=== PATIENT | female | born 1945 | race Caucasian/White ===

== ENCOUNTER → 2021-03-23 | Outpatient (CLI) | payer MEDICARE ==
[~2021-03-23] MED LIST: ASPIR 8181 MG PO; CATAPRES 0.1MG0.1 MG PO; ELAVIL 10 MG TA10 MG PO; FLOMAX0.4 MG PO; GLUCOPHAGE1000 MG PO; HYDRALAZINE HCL50 MG PO; IMDUR ER TAB 3030 MG PO; K-DUR TAB 20 M20 MEQ PO; KEFLEX CAP 500500 MG PO; LASIX20 MG PO; LIPITOR TAB 2020 MG PO; NOVOLIN N100 UNIT/1 SQ; NOVOLIN R100 UNIT/1 SC; PLAVIX 75 MG TA75 MG PO; PREDNISONE 50 M50 MG PO; PROTONIX40 MG PO; TENORMIN100 MG PO; TRICOR145 MG PO; Voltaren Gel 1 % TOP; ZANTAC150 MG PO; ZOFRAN4 MG PO; ZOLOFT25 MG PO
== END ==
LOC: HEART CORB 10:26
DX: I25.10 Atherosclerotic heart disease of native coronary artery without angina pectoris (principal); I48.91 Unspecified atrial fibrillation; R06.02 Shortness of breath; R07.9 Chest pain, unspecified
CPT/HCPCS: 93306

== ENCOUNTER 2022-02-16 01:41 | Inpatient (IN) | payer MEDICARE ==
[~2022-02-16] VITALS: Ht 152.4 cm; Wt 70.0 kg
[~2022-02-16 01:41] MED LIST changes: -K-DUR TAB 20 M20 MEQ PO; +KLOR-CON M2020 MEQ PO; +ZOLOFT100 MG PO; -ZOLOFT25 MG PO
[2022-02-16 02:16] LABS: HEMOGLOBIN 14.2 gm/dl (12.3-15.3); RED BLOOD COUNT 4.9 M/UL (4.00-5.10); WHITE BLOOD COUNT 12.6 K/UL (4.5-11.0)
[2022-02-16 02:56] LABS: BUN/CREATININE RATIO 37 (0-10)
[2022-02-16 08:34] LABS: BUN/CREATININE RATIO 52 (0-10)
[2022-02-16 11:25] LABS: BUN/CREATININE RATIO 49 (0-10)
[2022-02-16 15:31] LABS: BUN/CREATININE RATIO 53 (0-10)
[2022-02-16] MEDS ORDERED: MELOXICAM7.5 MG PO (15:50)
[2022-02-16] MEDS ORDERED: ELIQUIS5 MG PO (15:51)
[2022-02-16] MEDS ORDERED: ATENOLOL100 MG PO (15:52)
[2022-02-16] MEDS ORDERED: FAMOTIDINE20 MG PO (15:54)
[2022-02-17 06:20] LABS: HEMOGLOBIN 13.1 gm/dl (12.3-15.3); RED BLOOD COUNT 4.49 M/UL (4.00-5.10)
[2022-02-17 06:22] LABS: WHITE BLOOD COUNT 7.5 K/UL (4.5-11.0)
[2022-02-17 07:03] LABS: BUN/CREATININE RATIO 51 (0-10)
--- NOTE | 2022-02-17 17:44 | NUR ---
RECEIVED PATIENT FROM ICU. AAOX2. RESP EVEN AND UNLABORED. LUNGS CLEAR. NO SOA NOTED. ABD SOFT AND NON DISTENDED. BOWEL SOUNDS + X4. F/C INTACT. SKIN WARM, DRY AND INTACT. RED BLANCHABLE AREA NOTED TO BILATERAL HIPS. ALLEVYN INTACT. REQUIRES MOD ASSIST WITH ADLS. #18 IV TO RIGHT HAND INTACT, #20 IV TO RAC INTACT, #20 LFA INTACT. NO DISTRESS NOTED WCTM.
--- NOTE | 2022-02-18 18:19 | NUR ---
PATIENTS BROTHER- KAZ FINCH (FRIEND)- (HOME)/ (CELL)
[2022-02-19 04:51] LABS: RED BLOOD COUNT 4.22 M/UL (4.00-5.10); WHITE BLOOD COUNT 6.3 K/UL (4.5-11.0)
[2022-02-19 05:32] LABS: BUN/CREATININE RATIO 50 (0-10)
[2022-02-20 03:01] LABS: HEMOGLOBIN 12.5 gm/dl (12.3-15.3); RED BLOOD COUNT 4.36 M/UL (4.00-5.10)
[2022-02-20 03:27] LABS: BUN/CREATININE RATIO 55 (0-10)
--- NOTE | 2022-02-20 14:14 | NUR ---
patient up in chair talking to family member
[2022-02-22] MEDS ORDERED: TYLENOL 8 HOUR650 MG PO (19:09)
[2022-02-22] MEDS ORDERED: NOVOLOG MI100 UNIT/3 SQ (19:09)
[2022-02-22] MEDS ORDERED: SERTRALINE HCL50 MG PO (19:09)
[2022-02-22] MEDS ORDERED: ASPIRIN EC81 MG PO (19:09)
[2022-02-22] MEDS ORDERED: STIMULANT LAXA1 EACH PO (19:09)
[2022-02-23 04:23] LABS: HEMOGLOBIN 11.9 gm/dl (12.3-15.3); RED BLOOD COUNT 4.15 M/UL (4.00-5.10); WHITE BLOOD COUNT 6.7 K/UL (4.5-11.0)
[2022-02-23 04:52] LABS: BUN/CREATININE RATIO 37 (0-10)
[2022-02-23] MEDS ORDERED: AMLODIPINE BESYL5 MG PO (08:43)
[2022-02-23] MEDS ORDERED: GLUCOPHAGE 500500 MG PO (08:43)
== END 2022-02-23 11:50 | DRG 637 ==
LOC: ER1 01:41 → CDU 03:40 → CCU 03:40 → M/S 03:40 → CCU 07:07 → M/S 02-17 16:51
PROVIDERS: Emergency Medicine; Internal Medicine; Internal Medicine Infectious Disease; ADMIT Internal Medicine
PROC: B24BZZZ Ultrasonography of Heart with Aorta (ICD-10-PCS; principal; 2022-02-20)
DX: E11.10 Type 2 diabetes mellitus with ketoacidosis without coma (principal); G93.41 Metabolic encephalopathy; I63.411 Cerebral infarction due to embolism of right middle cerebral artery; N30.00 Acute cystitis without hematuria; B96.4 Proteus (mirabilis) (morganii) as the cause of diseases classified elsewhere; I25.10 Atherosclerotic heart disease of native coronary artery without angina pectoris; I10 Essential (primary) hypertension; Z20.822 Contact with and (suspected) exposure to COVID-19; K59.00 Constipation, unspecified; L89.221 Pressure ulcer of left hip, stage 1; I48.0 Paroxysmal atrial fibrillation; L89.211 Pressure ulcer of right hip, stage 1; Z87.11 Personal history of peptic ulcer disease; Z90.49 Acquired absence of other specified parts of digestive tract; Z88.8 Allergy status to other drugs, medicaments and biological substances; Z79.4 Long term (current) use of insulin; Z82.49 Family history of ischemic heart disease and other diseases of the circulatory system; Z87.891 Personal history of nicotine dependence; Z95.1 Presence of aortocoronary bypass graft; Z79.84 Long term (current) use of oral hypoglycemic drugs; Z79.01 Long term (current) use of anticoagulants; Z79.899 Other long term (current) drug therapy
CPT/HCPCS: ECHO; 36415; 36600; 70450; 70496; 70498; 70551; 71045; 80048; 80053; 80307; 81001; 82009; 82140; 82550; 82553; 82607; 82803; 82962; 83036; 83605; 83690; 83735; 84439; 84443; 84484; 85025; 86140; 87040; 87077; 87086; 87186; 92507; 92526; 92610; 93005; 93306; 96374; 96376; 97110; 97116-GP-CQ; 97161; 97166; 97530-GP-CQ; 99285; A6212; J0696; J3475; J3486; Q9967; U0002